=== PATIENT | male | born 1950 | race Caucasian/White ===

== ENCOUNTER 2017-06-29 00:42 | Emergency (ER) | payer SELFPAY ==
[~2017-06-29] VITALS: Ht 182.9 cm; Wt 75.0 kg
[2017-06-29 00:44] VITALS: BP 181/84; PULSE 81; RESP 22; TEMP 97.9; O2SAT 99
== END 2017-06-29 02:17 | disposition left against medical advice (07) ==
LOC: NED 02:05
DX: R10.9 Unspecified abdominal pain (principal)
CPT/HCPCS: 99281